=== PATIENT | male | born 1985 | race Caucasian/White ===

== ENCOUNTER → 2020-09-05 10:51 | Outpatient (BNVA) | payer OTHER, SELFPAY | PROVIDERS: Visit Provider Physician Assistant Medical | DX: S33.9XXA Sprain of unspecified parts of lumbar spine and pelvis, initial encounter (principal); S29.012A Strain of muscle and tendon of back wall of thorax, initial encounter; X50.0XXA Overexertion from strenuous movement or load, initial encounter | CPT/HCPCS: 72110; 99203 ==

== ENCOUNTER → 2020-09-07 11:14 | Outpatient (BNVA) | payer OTHER, SELFPAY | PROVIDERS: Visit Provider Physician Assistant Medical | DX: S33.9XXA Sprain of unspecified parts of lumbar spine and pelvis, initial encounter (principal); S29.012A Strain of muscle and tendon of back wall of thorax, initial encounter; X58.XXXA Exposure to other specified factors, initial encounter | CPT/HCPCS: 99213 ==

== ENCOUNTER → 2020-09-14 10:52 | Outpatient (BNVA) | payer OTHER, SELFPAY | PROVIDERS: Visit Provider Physician Assistant Medical | DX: M54.17 Radiculopathy, lumbosacral region (principal) | CPT/HCPCS: 99213 ==

== ENCOUNTER 2020-09-17 19:21 | Outpatient (REF) | payer OTHER, SELFPAY ==
--- NOTE | ~2020-09-17 | MR_ITS ---
EXAMINATION: MR LUMBAR SPINE WITHOUT CONTRAST CLINICAL INFORMATION: Lifting injury. Severe lower back pain. Weakness in the bilateral legs. COMPARISON: Lumbar spine radiographs from 09/05/2020. TECHNIQUE: MRI of the lumbar spine was obtained using routine sequences without contrast. FINDINGS: Mild degenerative listhesis of L5 on S1. Otherwise, normal anatomic alignment. Normal, homogeneous marrow signal throughout the lumbar spine. No suspicious marrow edema. The vertebral body heights are largely maintained. Moderate degenerative disc disease from L3-S1 with T2 hyperintense annular fissures. The conus medullaris terminates at the level of L1. The distal spinal cord is normal in appearance. No significant abnormalities of the paraspinal musculature. Limited evaluation of the intra-abdominal structures without significant abnormalities. The abdominal aorta is of normal contour and caliber. AXIAL SPINAL LEVELS: L1-L2: Normal annular contour. There is no facet joint arthropathy. There is no neural foraminal stenosis. There is no spinal canal stenosis. L2-L3: Normal annular contour. There is mild bilateral facet joint arthropathy. There is no neural foraminal stenosis. There is no spinal canal stenosis. L3-L4: Shallow diffuse disc bulge. There is mild bilateral facet joint arthropathy. There is no neural foraminal stenosis. There is no spinal canal stenosis. L4-L5: Mild diffuse disc bulge. There is moderate right and mild left facet joint arthropathy. There is no neural foraminal stenosis. There is no spinal canal stenosis. L5-S1: Mild diffuse disc bulge. There is moderate bilateral facet joint arthropathy. There is mild left and no right neural foraminal stenosis. There is no spinal canal stenosis. 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 There is moderate disc degeneration from L3-S1 with annular fissures at these levels. No overt spinal canal stenosis or nerve root compression.
== END 2020-09-17 19:22 | disposition home or self-care (01) ==
LOC: HO.MRI 19:21
PROVIDERS: Visit Provider Internal Medicine
DX: M54.5 Low back pain (principal); R53.1 Weakness
CPT/HCPCS: 72148

== ENCOUNTER → 2020-09-24 10:06 | Outpatient (BNVA) | payer OTHER, SELFPAY | PROVIDERS: Visit Provider Physician Assistant | DX: M54.17 Radiculopathy, lumbosacral region (principal) | CPT/HCPCS: 99213 ==

== ENCOUNTER → 2020-10-05 09:39 | Outpatient (BNVA) | payer OTHER, SELFPAY | PROVIDERS: Visit Provider Physician Assistant Medical | DX: S33.9XXD Sprain of unspecified parts of lumbar spine and pelvis, subsequent encounter (principal); X58.XXXD Exposure to other specified factors, subsequent encounter; M54.17 Radiculopathy, lumbosacral region | CPT/HCPCS: 99213 ==

== ENCOUNTER → 2020-10-18 09:19 | Outpatient (BNVA) | payer OTHER, SELFPAY | PROVIDERS: Visit Provider Physician Assistant Medical | DX: S39.012D Strain of muscle, fascia and tendon of lower back, subsequent encounter (principal); X58.XXXD Exposure to other specified factors, subsequent encounter | CPT/HCPCS: 99213 ==

== ENCOUNTER → 2020-11-02 09:43 | Outpatient (BNVA) | payer OTHER, SELFPAY | PROVIDERS: Visit Provider Internal Medicine | DX: S39.012D Strain of muscle, fascia and tendon of lower back, subsequent encounter (principal); X58.XXXD Exposure to other specified factors, subsequent encounter | CPT/HCPCS: 99213 ==

== ENCOUNTER → 2020-11-21 13:12 | Outpatient (BNVA) | payer OTHER, SELFPAY | PROVIDERS: Visit Provider Physician Assistant Medical | DX: S39.012D Strain of muscle, fascia and tendon of lower back, subsequent encounter (principal); X58.XXXD Exposure to other specified factors, subsequent encounter; M51.36 Other intervertebral disc degeneration, lumbar region | CPT/HCPCS: 99213 ==

== ENCOUNTER → 2020-12-07 14:49 | Outpatient (BNVA) | payer OTHER, SELFPAY | PROVIDERS: Visit Provider Physician Assistant Medical | DX: S39.012D Strain of muscle, fascia and tendon of lower back, subsequent encounter (principal); X58.XXXD Exposure to other specified factors, subsequent encounter | CPT/HCPCS: 99213 ==

== ENCOUNTER 2020-12-12 09:00 | Outpatient (RCR) | payer OTHER, SELFPAY ==
--- NOTE | 2020-09-14 14:31 | MHC.PT.EP ---
[facility] [place] Office [place] Office [place] Office [address] Darron Curiel [address] [phone] F: [phone] F: [phone] F: [phone] F: [phone] Physical Therapy Plan of Care Date of Evaluation: Date of Surgery: Diagnosis: Lumbosacral and thoracic strain, suspect discopathy. Assessment: Pt is a 34 y/o male referred to PT for lumbar spine/ thoracic spine strain, possible discopathy who presents with signs and Sx consistent with lumbar derangement with radiculopathy resulting in poor ying for static postures in sitting as well as standing and laying in bed, poor tolerance for ambulating moderate distance and performing HH chores secondary to Significantly decreased global trunk ROM, significantly limited bed mobility, significantly compensated sitting posture, compensated posture, gait abnormality, increased spinal tissue tension, altered standing posture, R LE radicular symptoms and pain. Pt is deemed an appropriate candidate to receive skilled PT in order to address his physical limitations to improve his functional ability. Frequency and Duration: The patient will be seen 2 x / wk x 6 wks. Short Term Goals: In 1 week: Pt will receive MRI before his next visit in order to assist in informing treatment direction. initiate HEP with evidence of compliance. Symmetrical sitting posture achieved. LE radicular Sx abolished. Fdc Goals: Pt will be able to sit with managed Sx > 1 hour; initial: unable. Pt will be able to lift 25# box from the floor with managed Sx; initial: unable. Treatment Plan: Modalities to reduce pain, spasms and effusion. Manual therapy to restore motion and function. Therapeutic exercise to improve strength and flexibility. Neuromuscular re-education for posture and balance. Therapeutic activities to return to functional activities of daily living. Electronically signed by: Kirt Oleary PT. Please sign and return to therapist. Thank you for your referral.
== END 2020-12-20 13:42 | disposition home or self-care (01) ==
LOC: HO.PTCHIC 09:00
PROVIDERS: Visit Provider Physician Assistant Medical
DX: S29.012D Strain of muscle and tendon of back wall of thorax, subsequent encounter (principal); S39.012D Strain of muscle, fascia and tendon of lower back, subsequent encounter
CPT/HCPCS: 97014; 97110; 97112; 97140; 97161; 97164

== ENCOUNTER → 2021-01-23 14:14 | Outpatient (BNVA) | payer OTHER, SELFPAY | PROVIDERS: Visit Provider Physician Assistant Medical | DX: M46.1 Sacroiliitis, not elsewhere classified (principal); M51.36 Other intervertebral disc degeneration, lumbar region | CPT/HCPCS: 99213 ==

== ENCOUNTER → 2021-01-30 15:17 | Outpatient (BNVA) | payer OTHER, SELFPAY | PROVIDERS: Visit Provider Physician Assistant Medical | DX: M46.1 Sacroiliitis, not elsewhere classified (principal); M51.26 Other intervertebral disc displacement, lumbar region | CPT/HCPCS: 99213 ==

== ENCOUNTER → 2021-02-12 13:19 | Outpatient (BNVA) | payer OTHER, SELFPAY | PROVIDERS: Visit Provider Physician Assistant Medical | DX: M46.1 Sacroiliitis, not elsewhere classified (principal) | CPT/HCPCS: 99213 ==

== ENCOUNTER 2023-07-30 13:59 | Outpatient (REF) | payer OTHER, MEDICAID, SELFPAY ==
[2023-07-30 17:17] LABS: MANUAL DIFF FLAG NO
[2023-07-30 17:27] LABS: Basophils Percent Auto 0.2 % (0-2); Eosinophils Absolute Auto 0.1 X10*3/uL (0.0-0.4); Eosinophils Percent Auto 1.3 % (0-4); Hemoglobin 15.5 g/dl (14.0-18.0); Imm Gran Abs Auto 0.01 X10*3/uL (0.00-0.03); Imm Gran Pct Auto 0.2 % (0.0-0.4); Lymphocytes Absolute Auto 1.3 X10*3/uL (1.2-4.9); Lymphocytes Percent Auto 28.2 % (20-40); Mean Corpuscular HGB Conc 33.7 g/dl (31.0-36.0); Mean Platelet Volume 10.2 fL (9.4-12.4); Monocytes Absolute Auto 0.4 X10*3/uL (0.1-1.2); Neutrophils Absolute Auto 2.9 x10*3/uL (2.0-8.3); Neutrophils Percent Auto 62.1 % (45-73); Platelet Count 186 X10*3/uL (160-400); Red Blood Count 5.35 X10*6/uL (4.60-5.80); Red Cell Distribution Width 13.7 % (11.0-16.0); White Blood Count 4.7 X10*3/uL (4.8-10.8)
[2023-07-30 17:31] LABS: Appearance Urine Clear; Color Urine Yellow; Glucose Urine UA Negative (Negative); Leukocyte Esterase Urine Negative (Negative); Nitrite Urine Negative (Negative); PH 5.5 (5.0-9.0); Specific Gravity - Urine 1.015 (1.005-1.025); Urine Blood Negative (Negative); Urine Ketones Negative (Negative); Urine Protein Negative (Neg-Trace)
[2023-07-30 17:36] LABS: Bacteria Urine None Seen (None Seen); RBC Urine 0-2 /HPF (0-2); Squamous Epithelial Cell Urine 0-2 /HPF (0-2); WBC Urine 0-5 /HPF (0-5)
[2023-07-30 18:02] LABS: Alanine Aminotransferase 44 U/L (0-40); Albumin Level 4.5 g/dL (3.5-5.0); Alkaline Phosphatase 56 U/L (39-117); Anion Gap 12 (12-20); Aspartate Amino Transferase 24 U/L (5-37); Bilirubin Total 0.5 mg/dL (0.0-1.0); Blood Urea Nitrogen 9 mg/dL (9-16); Calcium 9.4 mg/dL (8.4-10.2); Carbon Dioxide 28 mmol/L (22-29); Chloride 104 mmol/L (96-108); Cholesterol 231 mg/dL (<200); Estimated Glomerular Filt Rate > 60; Glucose Random 98 mg/dL (60-115); HDL Cholesterol 46 mg/dL (>40); LDL Cholesterol Calculated 134 mg/dL (<100); Potassium 3.8 mmol/L (3.3-5.1); Sodium 140 mmol/L (135-145); Total Protein 7.4 g/dL (6.5-8.0); Triglycerides 258 mg/dL (<150)
[2023-07-30 18:05] LABS: Estimated Average Glucose 120 mg/dL; Hemoglobin A1c % 5.8 % (<6.0)
[2023-07-30 18:20] LABS: TSH reflex Free T4 1.59 uIU/mL (0.32-4.0)
[2023-07-31 04:32] LABS: HIV AB/AG Nonreactive (Nonreactive); HIV Num 1 0.05 S/CO (0.00-0.99); ~Hepatitis C Antibody Nonreactive (Nonreactive)
== END 2023-07-30 14:00 | disposition home or self-care (01) ==
LOC: HO.CHCLDS 13:59
PROVIDERS: Visit Provider Family Medicine
DX: Z00.00 Encounter for general adult medical examination without abnormal findings (principal); Z13.29 Encounter for screening for other suspected endocrine disorder; Z11.4 Encounter for screening for human immunodeficiency virus [HIV]; I10 Essential (primary) hypertension
CPT/HCPCS: 36415; 80053; 80061; 81001; 83036; 84443; 85025; 86803; 87389

== ENCOUNTER 2024-09-08 14:40 | Outpatient (REF) | payer OTHER, MEDICAID, SELFPAY ==
--- OUTSIDE RECORDS SUMMARY | 2024-09-08 15:22 | XMS_ITS | Encounter Summary ---
Author Organization [employer] Address [address] [facility] [address] [place] [address] Care Team Providers Care Paste Mixing Supervisor Name Role Phone Jade Ba MD Primary Care Provider [phone] Reason for Visit * Reason Comments Rash Encounter Details Date Type Department Care Team ([facility] st Contact Info) Description 09/08/2024 2:00 PM EDT Office Visit [facility] [address], [place] [id number] Sarai Klein MD [address] [place] [address] Tinea corporis (Primary Dx); Rash Social History Tobacco Use Types Packs/Day Years Used Date Smoking Tobacco: Former Cigarettes Passive Smoke Exposure: Never Smokeless Tobacco: Current Comments:Vaping Zynn pouches Alcohol Use Standard Drinks/Week Comments Never 0 (1 standard drink = 0.6 oz pur e alcohol) Sex and Gender Information Value Date Recorded Sex Assigned at Male 03/03/2022 10:23 AM EDT Legal Sex Male 10:23 AM EDT Gender Identity Male 03/03/2022 10:23 AM EDT Sexual Orientation Straight 03/03/2022 10 :23 AM EDT 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 on file Not o n file documented as of this encounter Last Filed Vital Signs Vital Sign Reading Time Taken Comments Blood Pressure 130/82 09/08/2024 2:25 PM EDT Pulse 87 09/08/2024 2:06 PM EDT Temperature 37 ??C (98.6 ??F) 09/08/2024 2:06 PM EDT Respiratory Rate 18 09/08/2024 2:06 PM EDT Oxygen Saturation 98% 09/08/2024 2:06 PM EDT Inhaled Oxygen Concentration - - Weight 80.7 kg (178 lb) 09/08/2024 2:06 PM EDT Height - - Body Mass Index 25.2 07/30/2023 1:11 PM EDT documented in this encounter Progress Notes * Dimitrios Hays - 09/08/2024 2:00 PM EDT Images from the original note were not included. Subjective Patient ID: Kye Camejo is a 38 y.o. male with past medical history of asthma, hypertension, seasonal allergies and tobacco use who presents to walk in clinic for Rash. He reports he had these spots on his back that he noticed 3 weeks ago and then noticed the spots being more prominent and very itchy. Reports he has seasonal allergies that have been prominent as well. Pt also reports recently starting his BP medication. Review of Systems Constitutional: Negative for fever and unexpected weight change. Respiratory: Negative for shortness of breath. Cardiovascular: Negative for chest pain. Gastrointestinal: Negative for abdominal pain. Genitourinary: Negative for difficulty urinating. Skin: Positive for rash. Objective Visit Vitals BP 130/82 Pulse 87 Temp 98.6 ??F (37 ??C) (Temporal) Resp 18 Body mass index is 25.2 kg/m??. Physical Exam Constitutional: Appearance: Normal appearance. Cardiovascular: Rate and Rhythm: Normal rate and regular rhythm. Heart sounds: Normal heart sounds. Pulmonary: Effort: Pulmonary effort is normal. Breath sounds: Normal breath sounds. Abdominal: General: Abdomen is flat. Palpations: Abdomen is soft. Tenderness: There is no abdominal tenderness. Musculoskeletal: Cervical back: Normal range of motion and neck supple. Lymphadenopathy: Cervical: No cervical adenopathy. Skin: General: Skin is warm and dry. Findings: Rash (scattered erythematous plaques on back, seeimage in chart) present. Neurological: Mental Status: He is alert. Mental status is at baseline. Psychiatric: Behavior: Behavior normal. Problem List Items Addressed This Visit Tinea corporis - Primary Reports rash x3 weeks. Seems to be worsening. Scattered across back erythematous plaques, seeimage in chart. -prescribed terbinafine (LamISIL) 250 MG -prescribed selenium sulfide (Selsun) 2.5 % shampoo Relevant Medications terbinafine (LamISIL) 250 MG tablet selenium sulfide (Selsun) 2.5 % shampoo -No evidence of acute disease process. Suspect tinea corporis. Symptoms mild. -Will treat with antifungal. -ER precautions discussed. -Seek medical attention for worsening symptoms. I, Dimitrios Hays, am serving as a scribe to document services personally performed by Dr. [place], based on the patient's response to questions by provider and providers statements to me. documented in this encounter Miscellaneous Notes * Assessment & Plan Note - Dimitrios Hays - 09/08/2024 2:28 PM EDTAssociated Problem(s): Tinea corporis Reports rash x3 weeks. Seems to be worsening. Scattered across back erythematous plaques, seeimage in chart. -prescribed terbinafine (LamISIL) 250 MG -prescribed selenium sulfide (Selsun) 2.5 % shampoo documented in this encounter Plan of Treatment Scheduled Orders Name Type Priority Associated Diagnoses Orde r Schedule RPR (Monitor) with Reflex to??Titer Lab Routine Rash Expected: 09/08/2024, Expires: 09/08/2025 documented as of this encounter Visit Diagnoses Diagnosis Tinea corporis- Primary Dermatophytosis of the body Rash Rash and other nonspecific skin eruption documented in this encounter Care Teams Paste Mixing Supervisor Relationship Specialty Start Date End Date Jade Ba MD [address] [place] [id number] PCP - General Family Medicine 07/30/23 documented as of this encounter
--- OUTSIDE RECORDS SUMMARY | 2024-09-08 15:22 | XMS_ITS | Encounter Summary ---
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
--- OUTSIDE RECORDS SUMMARY | 2024-09-08 15:22 | XMS_ITS | Clinical Summary ---
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 Immunizations Name Administration Dates Next Due Influenza Quadravalent, MDCK , 0.5ml, preservative free (Flucelvax) 6mo and older 04/14/2018 Pneumococcal polysaccharide 23 valent (Pneumovax 23) 2yo and older 06/06/2020 Td Tetanus diptheria (Tdvax) 7yo and older 10/01 Tdap Tetanus diptheria acell ular pertussis (Boostrix; Adacel) 7yo and older 04/15/2013 Surgical History Surgery Date Site/Laterality Comments APPENDECTOMY PROCEDURE: HISTORICAL APPENDECTOMY; COMMENT: 2002 Medical History Medical History Date Comments Historical Medical DX 09/10/2012 DX:NO ACTI VE MEDICAL PROBLEMS Family History Medical History Relation Name Comments Coronary artery disease Father Hypertension Father Stroke Father Diabetes Mother Hypertension Mother Relation Name Status Comments Brother 1 Alive Brother 2 Alive Brother 3 Alive Brother 4 Alive Brother 5 Alive Brother 6 Alive Brother 7 Alive Father Alive htn Mother Alive htn,dm Sister 1 Alive Sister 2 Alive Sister 3 Alive Sister 4 Alive Sister 5 Alive Social History Tobacco Use Types Packs/Day Years Used Date Smoking Tobacco: Former Cigarettes Q uit: 06/08/2020 Smokeless Tobacco: Never Alcohol Use Standard Drinks/Week Comments Yes 5 (1 standard drink = 0.6 oz pur e alcohol) Sex and Gender Information Value Date Recorded Sex Assigned at Not on file Legal Sex Male 3:20 AM EST Gender Identity Not on file Sexual Orientation Not on file Obstetrics History Last Filed Vital Signs Vital Sign Reading Time Taken Comments Blood Pressure 122/74 01/02/2023 12:36 PM EDT Pulse 88 01/02/2023 12:18 PM EDT Temperature - - Respiratory Rate - - Oxygen Saturation - - Inhaled Oxygen Concentration - - Weight 80.7 kg (178 lb) 01/02/2023 12:18 PM EDT Height 172.7 cm (5' 8 ) 01/02/2023 12:18 PM EDT Body Mass Index 27.06 01/02/2023 12:18 PM EDT Plan of Treatment Health Maintenance Due Date Last Done Comments Hepatitis B Vaccines (1 of 3 - 19+ 3-dose series) 2005 Pneumococcal Vaccine: Pediatrics (0 to 5 Years) and At-Risk Patients (6 to 64 Years) (2 of 2 - PCV) 06/06/2021 06/06/2020 Depression Screening 04/06/2022 HIV Screening 04/06/2022 Social Influencers of Health Screening 04/06/2022 COVID-19 Vaccine (1 - 2023-2 5 season) 2024 Cholesterol Screening (Lipid Panel) 05/06/2024 05/06/2019 Influenza Vaccine (Season Ended) 2025 04/14/2018 DTaP,Tdap,and Td Vaccines (3 - Td or Tdap) 10/02/2027 10/01/2017, 04/15/2013 Hepatitis C Screening Completed 01/02/2023 HIB Vaccines Aged Out No longer eligi ble based on patient's age to complete this topic HPV Vaccines Aged Out No longer eligi ble based on patient's age to complete this topic Hepatitis A Vaccines Aged Out No long er eligible based on patient's age to complete this topic IPV Vaccines Aged Out No longer eligi ble based on patient's age to complete this topic MMR Vaccines Aged Out No longer eligi ble based on patient's age to complete this topic Meningococcal ACWY Vaccine Aged Out N o longer eligible based on patient's age to complete this topic Meningococcal B Vaccine Aged Out No l onger eligible based on patient's age to complete this topic RSV Immunization Patients Under 20 months Aged Out No longer eligible b ased on patient's age to complete this topic Varicella Vaccines Aged Out No longer eligible based on patient's age to complete this topic Procedures Procedure Name Priority Date/Time Associated Diagnosis Comments HEPATITIS C SCREENING Routine 01/02/2023 LIPID PANEL Routine 05/06/2019 from Last 3 Months or Most Recently Relevant to Health Maintenance Results * Hepatitis C Screening (01/02/2023) Hepatitis C Screening Abstracted Historical Provider HEALTH MAINTENANCE Final Result * (ABNORMAL) Lipid panel (05/06/2019) LDL/HDL Ratio 4 0 - 4 Triglycerides 179(A) 0 - 150 mg/dL Cholesterol 215(A) 0 - 200 mg/dL HDL 60 >=40 mg/dL LDL Cholesterol 120(A) 0 - 100 mg/dL Blood Venous blood specimen / Unknown Historical Provider LAB BLOOD ORDERABLES Tonya l Result from Last 3 Months or Most Recently Relevant to Health Maintenance Care Teams Metal Trades Instructor Relationship Specialty Start Date End Date Tramaine Zuniga MD [address] [place] [address] PCP - General 12/25/22
--- OUTSIDE RECORDS SUMMARY | 2024-09-08 15:22 | XMS_ITS | Clinical Summary ---
Author Organization [employer] Address [address] [place] [address] Care Team Providers Care Pattern Hanger Name Role Phone Jade Ba MD Primary Care Provider [phone] Allergies Active Allergy Reactions Criticality Noted Date Comments Banana 07/30/2023 Onion Itching 04/15/2013 Medications cetirizine (ZyrTEC) 10 MG tablet Take 1 tablet (10 mg) by mouth in the morning. 90 tablet 07/30/2023 Active hydrOXYzine pamoate (Vistaril) 25 MG capsule Take 1 capsule (25 mg) by mouth every 12 (twelve) hours if needed for itching or anxiety. 30 capsule 07/30/2023 Active amLODIPine (Norvasc) 5 MG tablet TAKE 1 TABLET BY MOUTH EVERY DAY IN THE MORNING 90 tablet 1 09/22/2023 Active terbinafine (LamISIL) 250 MG tabletIndicatio ns:Tinea corporis Take 1 tablet (250 mg) by mouth Once per day for 14 days. 14 tablet 09/08/2024 Active selenium sulfide (Selsun) 2.5 % shampooIndicati ons:Tinea corporis Lather on skin twice a week for 2 onths 118 mL 2 09/08/2024 Active Active Problems Problem Noted Date Diagnosed Date Tinea corporis 09/08/2024 Assessment & Plan (09/08/2024 2:30 PM EDT): Reports rash x3 weeks. Seems to be worsening. Scattered across back erythematous plaques, seeimage in chart. -prescribed terbinafine (LamISIL) 250 MG -prescribed selenium sulfide (Selsun) 2.5 % shampoo Seasonal allergies 07/30/2023 Assessment & Plan (07/31/2023 2:38 AM EDT): Advised to continue taking Zyrtec as needed. Primary hypertension 07/30/2023 Assessment & Plan (07/31/2023 2:39 AM EDT): Uncontrolled: Patient reports consistently high blood pressure readings at home. Plan to initiate treatment with Domblodipine, monitoring for side effects such as flushing, swelling in the legs, and palpitations. The patient is instructed to monitor blood pressure at home and report any significant changes. Labs: CBC, CMP, Lipid, TSH, Urinalysis, Albumin Panic attacks 07/30/2023 Assessment & Plan (07/31/2023 2:37 AM EDT): Given the patient's report of anxiety and panic attacks, a prescription for hydroxyzine is provided for use as needed. The patient is advised of the potential sedative effects. The provider also discussed the importance of monitoring for any side effects and considering therapy for long-term management. Palpitations 06/26/2020 Mild persistent asthma without complication 06/2019 Tobacco use disorder 06/17/2019 Recurrent shoulder dislocation 04/15/2013 Resolved Problems Problem Noted Date Diagnosed Date Resolved Date Elevated blood pressure reading 07/30/2023 07/30/2023 Encounters Date Type Department Care Team Description 09/08/2024 2:00 PM EDT Office Visit [facility] [address] [place] [address] [phone] Sarai Klein MD Tinea corporis (Primary Dx); Rash 09/08/2024 Travel from Last 3 Months Immunizations Name Administration Dates Next Due Influenza Injectable Quadriv alant Preservative Free IIV4 MDCK 04/14/2018 Pneumococcal Polysaccharide PPSV23 06/06/2020 TD (adult), 2 Lf tetanus tox oid, preservative free, adsorbed 10/01/2017 Tdap 04/15/2013 Family History Medical History Relation Name Comments CVA x3 Father Hypertension Father Diabetes Maternal Grandmother Diabetes Mother Heart disease Mother Pancreatic cancer Paternal Grandfather Alzheimer's disease Paternal Grandmother Relation Name Status Comments Father Maternal Grandfather Maternal Grandmother Mother Paternal Grandfather Paternal Grandmother Social History Tobacco Use Types Packs/Day Years Used Date Smoking Tobacco: Former Cigarettes Passive Smoke Exposure: Never Smokeless Tobacco: Current Tobacco Cessation:Ready to Q uit: Not Asked Comments:Vaping Zynn pouches Alcohol Use Standard Drinks/Week Comments Never 0 (1 standard drink = 0.6 oz pur e alcohol) Sex and Gender Information Value Date Recorded Sex Assigned at Male 03/03/2022 10:23 AM EDT Legal Sex Male 10:23 AM EDT Gender Identity Male 03/03/2022 10:23 AM EDT Sexual Orientation Straight 03/03/2022 10 :23 AM EDT 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 n file Last Filed Vital Signs Vital Sign Reading Time Taken Comments Blood Pressure 130/82 09/08/2024 2:25 PM EDT Pulse 87 09/08/2024 2:06 PM EDT Temperature 37 ??C (98.6 ??F) 09/08/2024 2:06 PM EDT Respiratory Rate 18 09/08/2024 2:06 PM EDT Oxygen Saturation 98% 09/08/2024 2:06 PM EDT Inhaled Oxygen Concentration - - Weight 80.7 kg (178 lb) 09/08/2024 2:06 PM EDT Height 179 cm (5' 10.47 ) 07/30/2023 1:11 PM EDT Body Mass Index 25.2 07/30/2023 1:11 PM EDT Plan of Treatment Health Maintenance Due Date Last Done Comments Depression Screening 1986 SDOH Screening 1986 Alcohol/Substance Use Screening 1998 Family Planning (PISQ) 2001 Hepatitis B Vaccines (1 of 3 - 19+ 3-dose series) 2005 Pneumococcal Vaccine: Pediatrics (0 to 5 Years) and At-Risk Patients (6 to 49) Years) (2 of 2 - PCV) 06/06/2021 06/06/2020 COVID-19 Vaccine (3 - 2023-2 5 season) 2024 01/15/2021, 12/25/2020 Influenza Vaccine (#1) 2024 04/14/2018 Tobacco Screening 07/29/2024 07/30/2023 DTaP/Tdap/Td Vaccines (3 - T d or Tdap) 10/02/2027 10/01/2017, 04/15/2013 Lipid Panel 07/29/2028 07/30/2023 Zoster Vaccines (1 of 2) 2036 RSV Patients and Patients Aged 60 years or older (1 - 1-dose 75+ series) 2061 HIV Screening Completed 07/30/2023 Hepatitis C Screening Completed 07/30/2023 HIB Vaccines Aged Out No longer eligi [...] patient's age to complete this topic Meningococcal Vaccine Aged Out No trey melanie eligible based on patient's age to complete this topic RSV under 20 months Aged Out No longe r eligible based on patient's age to complete this topic Rotavirus Vaccines Aged Out No longer eligible based on patient's age to complete this topic Procedures Procedure Name Priority Date/Time Associated Diagnosis Comments HEPATITIS C AB W/REFL TO HCV RNA, QN, PCR Routine 07/30/2023 2:02 PM EDT Healthcare maintenance HIV 1/2 ANTIGEN/ANTIBODY, FOURTH GENERATION W/RFL Routine 07/30/2023 2:02 PM EDT Healthcare maintenance LIPID PANEL, STANDARD Routine 07/30/2023 2:02 PM EDT Primary hypertension from Last 3 Months or Most Recently Relevant to Health Maintenance Results * Hepatitis C Antibody with Reflex to HCV, RNA, Quantitative, Real-Time PCR (07/30/2023 2:02 PM EDT) Hepatitis C Antibody Nonreactive Nonreactive [facility] Comment:Antibodies to HCV no t detected; does not exclude early acuteHCV infection. Blood Venous blood specimen / Unknown 07/30/2023 2:02 PM EDT 07/30/2023 5:14 PM EDT us Jade Ba MD LAB BLOOD ORDERABLES Final Re sult Performing Organization Address [facility] Co de Phone Number [facility] [address] [place] [address] [phone] * HIV-1/2 Antigen and Antibodies, Fourth Generation, with Reflexes (07/30/2023 2:02 PM EDT) HIV AB/AG Nonreactive Nonreactive [facility] Comment:HIV-1 p24 Ag and/or HIV-1/HIV-2 Ab not detected.A test result that is nonreactive does not exclude thepossibility of exposure to or infection with HIV-1 and/orHIV-2. Nonreactive results in this assay for individualswith prior exposure to HIV-1 and/or HIV-2 may be due toantigen and antibody levels that are below the limit ofdetection of this assay.The [employer] HIV Ag/Ab Combo assay result andsupplemental assay results should be interpreted inconjunction with the patient's clinical presentation,history and other laboratory results. If the results areinconsistent with clinical evidence, additional testing issuggested to confirm the result. Blood Venous blood specimen / Unknown 07/30/2023 2:02 PM EDT 07/30/2023 5:14 PM EDT Jade Ba MD LAB BLOOD ORDERABLES Final Re sult Performing Organization Address [facility]/ZIP Co de Phone Number [facility] [address] [place] [address] [phone] * (ABNORMAL) Lipid Panel, Standard (07/30/2023 2:02 PM EDT) Triglycerides 258(H) <150 mg/dL [facility] Comment:Desirable Triglyceri de: less than 150 mg/dLBorderline High Triglyceride 150-199 mg/dLHigh Triglyceride: 200-499 mg/dLVery High Triglyceride: greater than or equal to 5OO mg/dL Cholesterol 231(H) <200 mg/dL [facility] Comment:Desirable Cholestero l: less than 200 mg/dLBorderline High Cholesterol: 200-239 mg/dLHigh Cholesterol: greater than 239 mg/dL LDL Cholesterol Calculated 134(H) <100 mg/dL [facility] Comment:Desirable LDL: less than 100 mg/dLNear Optimal/Above Optimal LDL: 110- 129 mg/dLBorderline High LDL: 130-159 mg/dLHigh LDL: 160-189 mg/dLVery High LDL: greater than or equal to 190 mg/dL HDL Cholesterol 46 >40 mg/dL [facility] Comment:Desirable HDL: great er than 40 mg/dL Note: This HDL assay may give artificially low results in patients with liver disease. Blood Venous blood specimen / Unknown 07/30/2023 2:02 PM EDT 07/30/2023 5:14 PM EDT us Jade Ba MD LAB BLOOD ORDERABLES Final Re sult [facility] [address] [place] [phone] from Last 3 Months or Most Recently Relevant to Health Maintenance Insurance Care Teams Pattern Hanger Relationship Specialty Start Date End Date Jade Ba MD [address] [place] [phone] PCP - General Family Medicine 07/30/23
[2024-09-11 16:02] LABS: RPR Rapid Plasma Reagin NON-REACTIVE (NON-REACTIVE)
== END 2024-09-08 14:41 | disposition home or self-care (01) ==
LOC: HO.HHCL 14:40
PROVIDERS: Visit Provider Family Medicine
DX: R21 Rash and other nonspecific skin eruption (principal)
CPT/HCPCS: 36415; 86592